=== PATIENT | female | born 1995 | race American Indian/Alaskan Native ===

== ENCOUNTER 2017-05-02 16:23 | Outpatient (CLI) | payer OTHER ==
[~2017-05-02 16:23] MED LIST: PRENATAL CAPLE1 EACH PO
== END 2017-05-03 12:58 | disposition home or self-care (01) ==
LOC: OBS/DEL 16:23
DX: O47.1 False labor at or after 37 completed weeks of gestation (principal); O23.43 Unspecified infection of urinary tract in pregnancy, third trimester; Z34.83 Encounter for supervision of other normal pregnancy, third trimester

== ENCOUNTER 2017-05-23 12:46 | Inpatient (IN) | payer OTHER ==
[~2017-05-23] VITALS: Ht 157.5 cm; Wt 1.8 kg
[2017-05-23] MEDS ORDERED: SULFATO FERROSO PO (15:53)
== END 2017-05-29 20:05 | DRG 775 ==
LOC: LDR 12:46 → OB/GYN 05-27 14:42
PROC: 4A1HXCZ Monitoring of Products of Conception, Cardiac Rate, External Approach (ICD-10-PCS; 2017-05-23)
PROC: BY4FZZZ Ultrasonography of Third Trimester, Single Fetus (ICD-10-PCS; 2017-05-23)
PROC: 0HQ9XZZ Repair Perineum Skin, External Approach (ICD-10-PCS; principal; 2017-05-27)
PROC: 10E0XZZ Delivery of Products of Conception, External Approach (ICD-10-PCS; 2017-05-27)
DX: O70.0 First degree perineal laceration during delivery (principal); O60.14X0 Preterm labor third trimester with preterm delivery third trimester, not applicable or unspecified; O42.113 Preterm premature rupture of membranes, onset of labor more than 24 hours following rupture, third trimester; Z3A.33 33 weeks gestation of pregnancy; Z37.0 Single live birth

== ENCOUNTER 2019-04-30 12:26 | Outpatient (CLI) | payer OTHER ==
[~2019-04-30 12:26] MED LIST changes: -PRENATAL TABLE1 EAC1 PO
[2019-05-01] MEDS ORDERED: PRENATAL TABLE1 EAC1 PO (14:45)
== END 2019-04-30 12:29 | disposition home or self-care (01) ==
LOC: LAB 12:26
DX: O60.00 Preterm labor without delivery, unspecified trimester (principal)

== ENCOUNTER → 2019-04-30 | Outpatient (CLI) | payer OTHER ==
[~2019-04-30] MED LIST changes: +PRENATAL TABLE1 EAC1 PO; +SULFATO FERROSO PO
== END | disposition home or self-care (01) ==
LOC: PRENATAL 09:34
DX: O28.2 Abnormal cytological finding on antenatal screening of mother (principal); O44.02 Complete placenta previa NOS or without hemorrhage, second trimester; O09.212 Supervision of pregnancy with history of pre-term labor, second trimester; O09.292 Supervision of pregnancy with other poor reproductive or obstetric history, second trimester; O60.02 Preterm labor without delivery, second trimester; O35.3XX0 Maternal care for (suspected) damage to fetus from viral disease in mother, not applicable or unspecified; O35.0XX0 Maternal care for (suspected) central nervous system malformation in fetus, not applicable or unspecified

== ENCOUNTER 2019-05-01 13:36 | Outpatient (CLI) | payer OTHER ==
[2019-05-01] MEDS ORDERED: PRENATAL TABLE1 EAC1 PO (14:45)
== END 2019-05-02 08:49 | disposition home or self-care (01) ==
LOC: OBS/DEL 13:36
DX: O23.42 Unspecified infection of urinary tract in pregnancy, second trimester (principal)

== ENCOUNTER → 2019-07-02 | Outpatient (CLI) | payer OTHER ==
[~2019-07-02] MED LIST changes: +PRENATAL TABLE1 EAC1 PO
== END | disposition home or self-care (01) ==
LOC: PRENATAL 09:00
DX: O28.1 Abnormal biochemical finding on antenatal screening of mother (principal); O26.843 Uterine size-date discrepancy, third trimester; O60.03 Preterm labor without delivery, third trimester; O42.913 Preterm premature rupture of membranes, unspecified as to length of time between rupture and onset of labor, third trimester; Z36.89 Encounter for other specified antenatal screening; O09.293 Supervision of pregnancy with other poor reproductive or obstetric history, third trimester

== ENCOUNTER 2019-08-12 03:04 | Outpatient (CLI) | payer OTHER ==
[2019-08-12] MEDS ORDERED: PROGESTERO50 MG/1 M1 IM (03:45)
== END 2019-08-12 09:05 | disposition home or self-care (01) ==
LOC: OBS/DEL 03:04
PROVIDERS: ATTEND Specialist
DX: O42.013 Preterm premature rupture of membranes, onset of labor within 24 hours of rupture, third trimester (principal)